=== PATIENT | female | born 1940 | race Caucasian/White ===

== ENCOUNTER 2017-06-30 13:14 | Inpatient (IN) | payer MEDICARE, MEDICAID ==
[~2017-06-30] VITALS: Ht 160 cm; Wt 89.4 kg
[~2017-06-30 13:14] MED LIST: AMLO10TA80 PO; COREG PO; HYDR-519 PO; TRIAMTERENE PO
[2017-06-30] MEDS ORDERED: SODIUM CHLORIDE 0.9% 1,000 ML IV ONE (13:31)
[2017-06-30 14:07] LABS: CHLORIDE 113 mEq/L (98-107)
[2017-06-30 14:10] LABS: INR 1.1; PROTHROMBIN TIME 11.1 sec (9.4-11.6)
[2017-06-30 14:11] LABS: BASOPHILS % 0.5 % (0.0-2.0); EOSINOPHILS % 0.3 % (0.0-5.0); HEMATOCRIT. 27.8 % (36.0-48.0); HEMOGLOBIN. 8.7 g/dL (12.0-16.0); LYMPHOCYTES % 26.4 % (20.0-50.0); MEAN CORPUSCULAR HEMOGLOBIN 20.6 pg (28.0-32.0); MEAN PLATELET VOLUME 7.1 fl (7.4-10.4); NEUTROPHILS % 60.8 % (40.0-76.0); PLATELET 518 x1000/uL (130-400); RED BLOOD CELL COUNT 4.21 mill/uL (4.2-5.4); RED CELL DISTRIBUTION WIDTH 18.3 % (11.6-14.6)
[2017-06-30] MEDS ORDERED: ONDANSETRON HCL 4MG/2ML VIAL IV STA (14:21)
[2017-06-30] MEDS ORDERED: POTASSIUM CHLORIDE 20MEQ TABLET SR PO ONE (14:30)
[2017-06-30] MEDS ORDERED: PANTOPRAZOLE SODIUM 40 MG/VIAL IV ONE (14:30)
[2017-06-30] MEDS ORDERED: ASPIRIN 81MG TABLET PO ONE (14:30)
[2017-06-30 15:02] LABS: PLATELET ESTIMATE SLIGHTLY INCREASED
[2017-06-30 15:41] LABS: CLARITY URINE CLEAR (CLEAR); COLOR URINE YELLOW (YELLOW); KETONES URINE NEGATIVE (NEGATIVE); LEUKOCYTE ESTERASE URINE 3+ (NEGATIVE); NITRITE URINE NEGATIVE (NEGATIVE); OCCULT BLOOD URINE NEGATIVE (NEGATIVE); PH URINE 7.5 (4.5-8.0); PROTEIN URINE 1+ (NEGATIVE); SPECIFIC GRAVITY URINE 1.012 (1.005-1.030); UROBILINOGEN URINE 0.2 E.U./dL (0.2-1.0)
[2017-06-30] MEDS ORDERED: CEFTRIAXONE 1 G PREMIX 50 ML IV ONE (16:00)
[2017-06-30 22:30] VITALS: BP 142/78
[2017-06-30] MEDS ORDERED: DIPHENHYDRAMINE 50MG/ML VIAL IV PRN (23:45)
[2017-06-30] MEDS ORDERED: IPRATROPIUM/ALBUTEROL 0.5-3(2.5)MG/3ML NEB INH PRN (23:45)
[2017-06-30] MEDS ORDERED: LORAZEPAM 0.5MG TABLET PO PRN (23:45)
[2017-06-30] MEDS ORDERED: NA PHOS,M-B/NA PHOS,DI-BA ENEMA 118ML PR PRN (23:45)
[2017-06-30] MEDS ORDERED: DOCUSATE SODIUM 100MG CAPSULE PO PRN (23:45)
[2017-06-30] MEDS ORDERED: MORPHINE SULFATE 4 MG/ML CPJ (NOT FOR IM USE) IV PRN (23:45)
[2017-06-30] MEDS ORDERED: ONDANSETRON HCL 4MG/2ML VIAL IV PRN (23:45)
[2017-06-30] MEDS ORDERED: MAGNESIUM/ALUMINUM HYDROXIDE/SIMETHICONE 30ML UDC PO PRN (23:45)
[2017-06-30] MEDS ORDERED: ACETAMINOPHEN 325MG TABLET PO PRN (23:45)
[2017-06-30] MEDS ORDERED: CLONIDINE 0.1MG TABLET PO PRN (23:45)
[2017-06-30] MEDS ORDERED: GUAIFENESIN 200MG/10ML SUGAR FREE UDC PO PRN (23:45)
[2017-07-01] VITALS (10 sets, daily range): BP systolic 123–161; BP diastolic 46–65
[2017-07-01] MEDS ORDERED: LEVOFLOXACIN 500MG PREMIX 100 ML IV NR (02:00)
[2017-07-01] MEDS ORDERED: KCL 10MEQ/50ML PREMIX 50 ML IV NR (02:00)
[2017-07-01] MEDS: HYDROCODONE/ACETAMINOPHEN 5/325MG TABLET PO PRN ×2 (03:07→17:27)
[2017-07-01 07:14] LABS: BASOPHILS % 0.8 % (0.0-2.0); HEMATOCRIT. 23.5 % (36.0-48.0); HEMOGLOBIN. 7.5 g/dL (12.0-16.0); LYMPHOCYTES % 30.9 % (20.0-50.0); MEAN CORPUSCULAR HEMOGLOBIN 21.2 pg (28.0-32.0); MEAN CORPUSCULAR VOLUME 66.8 fL (81.0-99.0); MEAN PLATELET VOLUME 7.1 fl (7.4-10.4); MONOCYTES % 10.5 % (2.0-8.0); NEUTROPHILS % 56.8 % (40.0-76.0); PLATELET 432 x1000/uL (130-400); RED BLOOD CELL COUNT 3.51 mill/uL (4.2-5.4); RED CELL DISTRIBUTION WIDTH 18.3 % (11.6-14.6)
[2017-07-01 08:27] LABS: CHLORIDE 116 mEq/L (98-107)
[2017-07-01 08:35] LABS: LDL CHOLESTEROL 50 mg/dL (5-100)
[2017-07-01 08:36] LABS: HDL CHOLESTEROL 46 mg/dL (40-59); T4 FREE 1.13 ng/dL (0.76-1.46)
[2017-07-01] MEDS: ASPIRIN 81MG EC TABLET PO SCH (08:51)
[2017-07-01] MEDS: ENOXAPARIN 40MG/0.4ML SYR SUBCUT SCH (08:52)
[2017-07-01 12:47] LABS: T4 FREE 1.1 ng/dL (0.76-1.46)
[2017-07-01 15:12] LABS: CREATINE KINASE MB FRACTION 2.4 ng/mL (0.5-3.6)
[2017-07-01 23:04] LABS: CREATINE KINASE MB FRACTION 2.1 ng/mL (0.5-3.6)
[2017-07-02] MEDS: HYDROCODONE/ACETAMINOPHEN 5/325MG TABLET PO PRN ×2 (00:22→11:07)
[2017-07-02 00:26] VITALS: BP 140/71
[2017-07-02] MEDS ORDERED: LEVOFLOXACIN 500MG PREMIX 100 ML IV SCH (02:00)
[2017-07-02] MEDS ORDERED: LEVOFLOXACIN 250MG PREMIX 50 ML IV SCH (02:00)
[2017-07-02 04:00] VITALS: BP 145/74
[2017-07-02 08:00] VITALS: BP 161/69
[2017-07-02 08:20] LABS: CREATINE KINASE MB FRACTION 2.2 ng/mL (0.5-3.6)
[2017-07-02] MEDS: ENOXAPARIN 40MG/0.4ML SYR SUBCUT SCH (09:00)
[2017-07-02] MEDS: ASPIRIN 81MG EC TABLET PO SCH (09:15)
[2017-07-02 10:22] VITALS: BP 125/56
[2017-07-02 12:00] VITALS: BP 125/56
== END 2017-07-02 13:09 | disposition home or self-care (01) | DRG 206 ==
LOC: EDBEDREQ 16:11 → EDBEDREQTM 16:11 → ER 16:38 → 8WST 16:40 → ENRESERV 21:03
PROVIDERS: ADMIT Internal Medicine; ATTEND Internal Medicine
PROC: 30233N1 Transfusion of Nonautologous Red Blood Cells into Peripheral Vein, Percutaneous Approach (ICD-10-PCS; principal; 2017-06-30)
DX: M94.0 Chondrocostal junction syndrome [Tietze] (principal); E86.0 Dehydration; D64.9 Anemia, unspecified; R10.9 Unspecified abdominal pain; A08.4 Viral intestinal infection, unspecified; E61.1 Iron deficiency; E87.6 Hypokalemia; I10 Essential (primary) hypertension; M19.90 Unspecified osteoarthritis, unspecified site; R07.9 Chest pain, unspecified; Z90.710 Acquired absence of both cervix and uterus; Z79.899 Other long term (current) drug therapy
CPT/HCPCS: 36415; 71045; 76700; 80048; 80053; 80061; 81003; 82550; 82553; 83036; 83690; 83880; 84439; 84443; 84484; 85025; 85379; 85610; 85730; 86850; 86900; 86920; 93005; 93306; 93970; 96361; 96365; 96375; 99285; C9113; J0696; J1650; J1956; J2405; J3480; J7030; J7050; P9016

== ENCOUNTER 2018-06-29 10:29 | Inpatient (IN) | payer MEDICARE, MEDICAID ==
[~2018-06-29] VITALS: Ht 160 cm; Wt 84.4 kg
[2018-06-29] VITALS (9 sets, daily range): BP systolic 130–155; BP diastolic 50–81
[~2018-06-29 10:29] MED LIST changes: -COREG PO; -TRIAMTERENE PO
[2018-06-29 11:58] LABS: BASOPHILS % 1.1 % (0.0-2.0); EOSINOPHILS % 1.4 % (0.0-5.0); LYMPHOCYTES % 28.3 % (20.0-50.0); MEAN CORPUSCULAR HEMOGLOBIN 19.9 pg (28.0-32.0); MEAN CORPUSCULAR VOLUME 66.8 fL (81.0-99.0); MONOCYTES % 7.9 % (2.0-8.0); NEUTROPHILS % 61.3 % (40.0-76.0); PLATELET 392 x1000/uL (130-400); RED BLOOD CELL COUNT 3.06 mill/uL (4.2-5.4); RED CELL DISTRIBUTION WIDTH 17.6 % (11.6-14.6)
[2018-06-29 11:59] LABS: HEMOGLOBIN. 6.1 g/dL (12.0-16.0)
[2018-06-29 12:00] LABS: HEMATOCRIT. 20.4 % (36.0-48.0)
[2018-06-29 12:02] LABS: CHLORIDE 116 mEq/L (98-107)
[2018-06-29 12:10] LABS: PLATELET ESTIMATE NORMAL
[2018-06-29 15:48] LABS: MEAN CORPUSCULAR HEMOGLOBIN 20.2 pg (28.0-32.0); MEAN CORPUSCULAR VOLUME 65.2 fL (81.0-99.0); PLATELET 339 x1000/uL (130-400); RED CELL DISTRIBUTION WIDTH 17.6 % (11.6-14.6)
[2018-06-29 15:51] LABS: HEMATOCRIT 18.9 % (36.0-48.0); HEMOGLOBIN 5.8 g/dL (12.0-16.0)
[2018-06-29] MEDS ORDERED: GUAIFENESIN 200MG/10ML SUGAR FREE UDC PO PRN (16:00)
[2018-06-29] MEDS ORDERED: DIPHENHYDRAMINE 50MG/ML VIAL IV PRN (16:00)
[2018-06-29] MEDS ORDERED: ONDANSETRON HCL 4MG/2ML INJ IV PRN (16:00)
[2018-06-29] MEDS ORDERED: CLONIDINE 0.1MG TABLET PO PRN (16:00)
[2018-06-29] MEDS ORDERED: IPRATROPIUM/ALBUTEROL 0.5-3(2.5)MG/3ML NEB INH PRN (16:00)
[2018-06-29] MEDS ORDERED: ACETAMINOPHEN 325MG TABLET PO PRN (16:00)
[2018-06-29] MEDS ORDERED: HYDRALAZINE 20MG/ML VIAL IV PRN (16:00)
[2018-06-29 16:34] LABS: TOTAL IRON BINDING CAPACITY 410 ug/dL (250-450)
[2018-06-29 17:31] LABS: TOTAL IRON BINDING CAPACITY 366 ug/dL (250-450)
[2018-06-29] MEDS ORDERED: OXYC-104 MT (18:23)
[2018-06-29] MEDS: PANTOPRAZOLE SODIUM 40 MG/VIAL IV SCH (19:02)
[2018-06-29 21:48] LABS: HEMOGLOBIN 6.5 g/dL (12.0-16.0)
[2018-06-30] VITALS (12 sets, daily range): BP systolic 124–162; BP diastolic 53–74
[2018-06-30] MEDS: OXYCODONE HCL/ACETAMINOPHEN 5/325MG TABLET PO PRN ×3 (00:53→17:27)
[2018-06-30] MEDS: SODIUM CHLORIDE 0.9% 1,000 ML IV SCH ×2 (00:57→17:28)
[2018-06-30 01:45] LABS: HEMATOCRIT 24.5 % (36.0-48.0); HEMOGLOBIN 7.9 g/dL (12.0-16.0)
[2018-06-30] MEDS: PANTOPRAZOLE SODIUM 40 MG/VIAL IV SCH ×2 (05:12→17:27)
[2018-06-30 05:49] LABS: BASOPHILS % 0.8 % (0.0-2.0); EOSINOPHILS % 2.1 % (0.0-5.0); HEMATOCRIT. 23.6 % (36.0-48.0); HEMOGLOBIN. 7.4 g/dL (12.0-16.0); LYMPHOCYTES % 25.7 % (20.0-50.0); MEAN CORPUSCULAR HEMOGLOBIN 21.9 pg (28.0-32.0); MEAN CORPUSCULAR VOLUME 69.8 fL (81.0-99.0); MEAN PLATELET VOLUME 7.9 fl (7.4-10.4); MONOCYTES % 9.7 % (2.0-8.0); NEUTROPHILS % 61.7 % (40.0-76.0); PLATELET 287 x1000/uL (130-400); RED BLOOD CELL COUNT 3.38 mill/uL (4.2-5.4); RED CELL DISTRIBUTION WIDTH 20.6 % (11.6-14.6)
[2018-06-30 06:51] LABS: PHOSPHORUS 3.7 mg/dL (2.5-4.9)
[2018-06-30] MEDS: AMLODIPINE 10MG TABLET PO SCH (08:43)
[2018-06-30] MEDS: IRON SUCROSE COMPLEX 100 MG/5 ML ML IV SCH (11:13)
[2018-06-30 12:28] LABS: T4 FREE 1.19 ng/dL (0.76-1.46)
[2018-06-30 20:30] LABS: HEMATOCRIT 27.9 % (36.0-48.0); HEMOGLOBIN 8.9 g/dL (12.0-16.0)
[2018-06-30 20:45] LABS: CREATINE KINASE 74 IU/L (26-192)
[2018-06-30 20:46] LABS: CREATINE KINASE MB FRACTION < 1.0 ng/mL (0.5-3.6)
[2018-07-01] VITALS: BP 149/65
[2018-07-01] MEDS: OXYCODONE HCL/ACETAMINOPHEN 5/325MG TABLET PO PRN ×2 (00:02→09:24)
[2018-07-01 04:00] VITALS: BP 155/62
[2018-07-01] MEDS: PANTOPRAZOLE SODIUM 40 MG/VIAL IV SCH (06:26)
[2018-07-01 06:49] LABS: BASOPHILS % 1.2 % (0.0-2.0); EOSINOPHILS % 2.5 % (0.0-5.0); HEMATOCRIT. 26.7 % (36.0-48.0); HEMOGLOBIN. 8.6 g/dL (12.0-16.0); LYMPHOCYTES % 28.8 % (20.0-50.0); MEAN CORPUSCULAR HEMOGLOBIN 22.9 pg (28.0-32.0); MEAN CORPUSCULAR VOLUME 70.9 fL (81.0-99.0); MEAN PLATELET VOLUME 7.9 fl (7.4-10.4); MONOCYTES % 8.9 % (2.0-8.0); NEUTROPHILS % 58.6 % (40.0-76.0); PLATELET 285 x1000/uL (130-400); RED BLOOD CELL COUNT 3.77 mill/uL (4.2-5.4); RED CELL DISTRIBUTION WIDTH 21.9 % (11.6-14.6)
[2018-07-01 07:31] LABS: CREATINE KINASE 66 IU/L (26-192)
[2018-07-01 07:32] LABS: CREATINE KINASE MB FRACTION < 1.0 ng/mL (0.5-3.6)
[2018-07-01 08:29] VITALS: BP 153/64
[2018-07-01 09:20] VITALS: BP 134/53
[2018-07-01] MEDS: AMLODIPINE 10MG TABLET PO SCH (09:25)
[2018-07-01] MEDS: IRON SUCROSE COMPLEX 100 MG/5 ML ML IV SCH (10:42)
[2018-07-01 12:00] VITALS: BP 159/72
[2018-07-01 14:04] VITALS: BP 159/72
== END 2018-07-01 15:54 | disposition home or self-care (01) | DRG 375 ==
LOC: ER 10:29 → 8WST 12:09 → ENRESERV 14:37
PROVIDERS: ADMIT Internal Medicine; ATTEND Internal Medicine
PROC: 30233N1 Transfusion of Nonautologous Red Blood Cells into Peripheral Vein, Percutaneous Approach (ICD-10-PCS; principal; 2018-06-29)
DX: C15.9 Malignant neoplasm of esophagus, unspecified (principal); C16.9 Malignant neoplasm of stomach, unspecified; D63.0 Anemia in neoplastic disease; E78.5 Hyperlipidemia, unspecified; M19.90 Unspecified osteoarthritis, unspecified site; D63.8 Anemia in other chronic diseases classified elsewhere; I11.9 Hypertensive heart disease without heart failure; D50.0 Iron deficiency anemia secondary to blood loss (chronic); I25.2 Old myocardial infarction; Z82.49 Family history of ischemic heart disease and other diseases of the circulatory system; Z83.3 Family history of diabetes mellitus; Z90.710 Acquired absence of both cervix and uterus; Z79.1 Long term (current) use of non-steroidal anti-inflammatories (NSAID); Z79.899 Other long term (current) drug therapy
CPT/HCPCS: 36415; 71045; 78582; 80048; 80061; 82550; 82553; 82728; 83036; 83540; 83550; 83735; 83880; 84100; 84439; 84443; 84484; 85014; 85018; 85027; 85379; 86850; 86870; 86900; 86920; 93005; 93306; 93970; 99285; A9558; C9113; J7050; P9016

== ENCOUNTER 2018-10-09 06:33 | Emergency (ER) | payer MEDICARE, MEDICAID ==
[~2018-10-09] VITALS: Ht 160 cm; Wt 77.0 kg
[~2018-10-09 06:33] MED LIST changes: -HYDR-519 PO; +OXYC-104 MT
[2018-10-09] MEDS ORDERED: MORPHINE SULFATE 4 MG/ML CPJ (NOT FOR IM USE) IV STA (06:57)
[2018-10-09] MEDS ORDERED: ONDANSETRON HCL 4MG/2ML INJ IV STA (06:57)
[2018-10-09 07:53] LABS: BASOPHILS % 0.8 % (0.0-2.0); EOSINOPHILS % 0.5 % (0.0-5.0); HEMATOCRIT. 25.6 % (36.0-48.0); HEMOGLOBIN. 8.4 g/dL (12.0-16.0); LYMPHOCYTES % 21.8 % (20.0-50.0); MEAN CORPUSCULAR HEMOGLOBIN 24.3 pg (28.0-32.0); MEAN CORPUSCULAR VOLUME 73.9 fL (81.0-99.0); MEAN PLATELET VOLUME 6.5 fl (7.4-10.4); MONOCYTES % 6.8 % (2.0-8.0); NEUTROPHILS % 70.1 % (40.0-76.0); PLATELET 484 x1000/uL (130-400); RED BLOOD CELL COUNT 3.47 mill/uL (4.2-5.4); RED CELL DISTRIBUTION WIDTH 18.3 % (11.6-14.6)
[2018-10-09 07:57] LABS: INR 1.1
[2018-10-09 08:05] LABS: CHLORIDE 113 mEq/L (98-107)
[2018-10-09 08:10] LABS: CLARITY URINE CLEAR (CLEAR); COLOR URINE YELLOW (YELLOW); KETONES URINE TRACE (NEGATIVE); LEUKOCYTE ESTERASE URINE NEGATIVE (NEGATIVE); NITRITE URINE NEGATIVE (NEGATIVE); OCCULT BLOOD URINE NEGATIVE (NEGATIVE); PH URINE 6.5 (4.5-8.0); PROTEIN URINE 1+ (NEGATIVE); UROBILINOGEN URINE 0.2 E.U./dL (0.2-1.0)
[2018-10-09] MEDS ORDERED: ONDANSETRON HCL 4MG/2ML INJ IV ONE (09:30)
[2018-10-09 09:42] VITALS: BP 144/65
== END 2018-10-09 09:53 | disposition home or self-care (01) ==
LOC: ER 06:33
DX: R10.9 Unspecified abdominal pain (principal); R11.2 Nausea with vomiting, unspecified; I10 Essential (primary) hypertension; Z85.028 Personal history of other malignant neoplasm of stomach
CPT/HCPCS: 36415; 71045; 74176; 80053; 81003; 83690; 85025; 85610; 93005; 96374; 96375; 96376; 99284; J2270; J2405

== ENCOUNTER 2018-12-09 09:57 | Inpatient (IN) | payer MEDICARE, MEDICAID ==
[~2018-12-09] VITALS: Ht 160 cm; Wt 84.4 kg
[2018-12-09] MEDS ORDERED: SODIUM CHLORIDE 0.9% 1,000 ML IV ONE (10:16)
[2018-12-09] MEDS ORDERED: ONDANSETRON HCL 4MG/2ML INJ IV STA (10:16)
[2018-12-09 11:05] LABS: BASOPHILS % 0.9 % (0.0-2.0); LYMPHOCYTES % 18.5 % (20.0-50.0); MEAN CORPUSCULAR HEMOGLOBIN 20.3 pg (28.0-32.0); MEAN CORPUSCULAR VOLUME 66.6 fL (81.0-99.0); MEAN PLATELET VOLUME 7.6 fl (7.4-10.4); MONOCYTES % 6.7 % (2.0-8.0); NEUTROPHILS % 72.9 % (40.0-76.0); PLATELET 512 x1000/uL (130-400); RED BLOOD CELL COUNT 2.01 mill/uL (4.2-5.4); RED CELL DISTRIBUTION WIDTH 17.3 % (11.6-14.6)
[2018-12-09 11:09] LABS: INR 1.1
[2018-12-09 11:10] LABS: CHLORIDE 114 mEq/L (98-107)
[2018-12-09 11:15] LABS: HEMOGLOBIN. 4.1 g/dL (12.0-16.0)
[2018-12-09 11:16] LABS: HEMATOCRIT. 13.4 % (36.0-48.0)
[2018-12-09 11:54] LABS: PLATELET ESTIMATE INCREASED
[2018-12-09 14:57] LABS: CLARITY URINE CLEAR (CLEAR); COLOR URINE YELLOW (YELLOW); KETONES URINE NEGATIVE (NEGATIVE); LEUKOCYTE ESTERASE URINE NEGATIVE (NEGATIVE); NITRITE URINE NEGATIVE (NEGATIVE); OCCULT BLOOD URINE NEGATIVE (NEGATIVE); PROTEIN URINE NEGATIVE (NEGATIVE); SPECIFIC GRAVITY URINE 1.007 (1.005-1.030); UROBILINOGEN URINE 0.2 E.U./dL (0.2-1.0)
[2018-12-09 16:00] VITALS: BP 177/70
[2018-12-09 17:00] VITALS: BP 177/70
[2018-12-09] MEDS ORDERED: CLONIDINE 0.1MG TABLET PO PRN (18:30)
[2018-12-09] MEDS ORDERED: ACETAMINOPHEN 325MG TABLET PO PRN (18:30)
[2018-12-09] MEDS ORDERED: MAGNESIUM/ALUMINUM HYDROXIDE/SIMETHICONE 30ML UDC PO PRN (18:30)
[2018-12-09] MEDS ORDERED: DIPHENHYDRAMINE 50MG/ML VIAL IV PRN (18:30)
[2018-12-09] MEDS ORDERED: LORAZEPAM 0.5MG TABLET PO PRN (18:30)
[2018-12-09] MEDS ORDERED: IPRATROPIUM/ALBUTEROL 0.5-3(2.5)MG/3ML NEB HHN PRN (18:30)
[2018-12-09] MEDS: ONDANSETRON HCL 4MG/2ML INJ IV PRN (19:59)
[2018-12-09 20:00] VITALS: BP 147/52
[2018-12-09] MEDS: SODIUM CHLORIDE 0.9% 1,000 ML IV SCH (20:17)
[2018-12-09] MEDS: FAMOTIDINE 20MG TABLET PO SCH (20:41)
[2018-12-09] MEDS: HYDROCODONE/ACETAMINOPHEN 5/325MG TABLET PO PRN (20:42)
[2018-12-10] VITALS (16 sets, daily range): BP systolic 128–162; BP diastolic 49–62
[2018-12-10 00:24] LABS: BASOPHILS % 0.6 % (0.0-2.0); EOSINOPHILS % 1.3 % (0.0-5.0); LYMPHOCYTES % 21.4 % (20.0-50.0); MEAN CORPUSCULAR HEMOGLOBIN 22.3 pg (28.0-32.0); MEAN CORPUSCULAR VOLUME 69.7 fL (81.0-99.0); MEAN PLATELET VOLUME 7.4 fl (7.4-10.4); NEUTROPHILS % 68.7 % (40.0-76.0); PLATELET 451 x1000/uL (130-400); RED BLOOD CELL COUNT 2.27 mill/uL (4.2-5.4); RED CELL DISTRIBUTION WIDTH 19.8 % (11.6-14.6)
[2018-12-10 00:31] LABS: HEMOGLOBIN. 5.1 g/dL (12.0-16.0)
[2018-12-10 00:32] LABS: HEMATOCRIT. 15.8 % (36.0-48.0)
[2018-12-10 01:46] LABS: TOTAL IRON BINDING CAPACITY 299 ug/dL (250-450)
[2018-12-10] MEDS: ONDANSETRON HCL 4MG/2ML INJ IV PRN ×2 (02:49→20:03)
[2018-12-10] MEDS: HYDROCODONE/ACETAMINOPHEN 5/325MG TABLET PO PRN ×3 (04:51→20:03)
[2018-12-10] MEDS: IRON SUCROSE COMPLEX 100 MG/5 ML ML IV SCH (05:15)
[2018-12-10 07:22] LABS: MEAN CORPUSCULAR HEMOGLOBIN 22.7 pg (28.0-32.0); MEAN CORPUSCULAR VOLUME 71.3 fL (81.0-99.0); PLATELET 432 x1000/uL (130-400); RED BLOOD CELL COUNT 2.71 mill/uL (4.2-5.4); RED CELL DISTRIBUTION WIDTH 19.4 % (11.6-14.6)
[2018-12-10 07:45] LABS: HEMATOCRIT 19.4 % (36.0-48.0); HEMOGLOBIN 6.2 g/dL (12.0-16.0)
[2018-12-10] MEDS: SODIUM CHLORIDE 0.9% 1,000 ML IV SCH (20:08)
[2018-12-10] MEDS: FAMOTIDINE 20MG TABLET PO SCH (21:39)
[2018-12-11] VITALS (12 sets, daily range): BP systolic 132–164; BP diastolic 48–69
[2018-12-11] MEDS: ONDANSETRON HCL 4MG/2ML INJ IV PRN ×2 (03:46→11:13)
[2018-12-11] MEDS: HYDROCODONE/ACETAMINOPHEN 5/325MG TABLET PO PRN ×2 (03:46→11:14)
[2018-12-11] MEDS: IRON SUCROSE COMPLEX 100 MG/5 ML ML IV SCH (05:50)
[2018-12-11] MEDS: SODIUM CHLORIDE 0.9% 1,000 ML IV SCH (10:29)
[2018-12-11 11:54] LABS: BASOPHILS % 0.6 % (0.0-2.0); EOSINOPHILS % 1.9 % (0.0-5.0); HEMATOCRIT. 28.3 % (36.0-48.0); HEMOGLOBIN. 9.2 g/dL (12.0-16.0); LYMPHOCYTES % 15.5 % (20.0-50.0); MEAN CORPUSCULAR VOLUME 76.9 fL (81.0-99.0); MEAN PLATELET VOLUME 7.8 fl (7.4-10.4); MONOCYTES % 6.9 % (2.0-8.0); NEUTROPHILS % 75.1 % (40.0-76.0); PLATELET 429 x1000/uL (130-400); RED BLOOD CELL COUNT 3.67 mill/uL (4.2-5.4); RED CELL DISTRIBUTION WIDTH 22.8 % (11.6-14.6)
== END 2018-12-11 16:57 | disposition home or self-care (01) | DRG 812 ==
LOC: ER 09:59 → 6WST 11:38 → ENRESERV 12:45
PROVIDERS: ADMIT Internal Medicine; ATTEND Internal Medicine
PROC: 30233N1 Transfusion of Nonautologous Red Blood Cells into Peripheral Vein, Percutaneous Approach (ICD-10-PCS; principal; 2018-12-09)
PROC: 30233N1 Transfusion of Nonautologous Red Blood Cells into Peripheral Vein, Percutaneous Approach (ICD-10-PCS; 2018-12-09)
DX: D64.9 Anemia, unspecified (principal); E44.1 Mild protein-calorie malnutrition; I10 Essential (primary) hypertension; M19.90 Unspecified osteoarthritis, unspecified site; Z82.49 Family history of ischemic heart disease and other diseases of the circulatory system; Z85.01 Personal history of malignant neoplasm of esophagus; Z85.028 Personal history of other malignant neoplasm of stomach; Z90.710 Acquired absence of both cervix and uterus
CPT/HCPCS: 36415; 71045; 81003; 83540; 83550; 84484; 85027; 86850; 86870; 86900; 86920; 93005; 93970; 96374; 99285; J2405; J7030; P9016

== ENCOUNTER 2019-01-02 06:15 | Inpatient (IN) | payer MEDICARE, MEDICAID ==
[~2019-01-02] VITALS: Ht 162.6 cm; Wt 90.7 kg
[2019-01-02] MEDS ORDERED: ONDANSETRON HCL 4MG/2ML INJ IV STA (06:52)
[2019-01-02 07:36] LABS: BASOPHILS % 0.2 % (0.0-2.0); LYMPHOCYTES % 7.4 % (20.0-50.0); MEAN CORPUSCULAR HEMOGLOBIN 25.6 pg (28.0-32.0); MEAN CORPUSCULAR VOLUME 81.4 fL (81.0-99.0); MEAN PLATELET VOLUME 7.2 fl (7.4-10.4); NEUTROPHILS % 89.4 % (40.0-76.0); PLATELET 544 x1000/uL (130-400); RED BLOOD CELL COUNT 1.95 mill/uL (4.2-5.4); RED CELL DISTRIBUTION WIDTH 23.7 % (11.6-14.6)
[2019-01-02 07:43] LABS: CHLORIDE 116 mEq/L (98-107); HEMATOCRIT. 15.8 % (36.0-48.0)
[2019-01-02 07:44] LABS: INR 1.1; PROTHROMBIN TIME 11.5 sec (9.6-11.0)
[2019-01-02 08:04] LABS: PLATELET ESTIMATE INCREASED
[2019-01-02] MEDS ORDERED: PANTOPRAZOLE SODIUM 40 MG/VIAL IV ONE (09:00)
[2019-01-02 12:36] LABS: CLARITY URINE CLOUDY (CLEAR); COLOR URINE YELLOW (YELLOW); KETONES URINE NEGATIVE (NEGATIVE); LEUKOCYTE ESTERASE URINE 2+ (NEGATIVE); NITRITE URINE NEGATIVE (NEGATIVE); OCCULT BLOOD URINE 2+ (NEGATIVE); PROTEIN URINE TRACE (NEGATIVE); SPECIFIC GRAVITY URINE 1.014 (1.005-1.030); UROBILINOGEN URINE 0.2 E.U./dL (0.2-1.0)
[2019-01-02 17:00] VITALS: BP 152/56
[2019-01-02 20:00] VITALS: BP 139/65
[2019-01-02] MEDS: PANTOPRAZOLE SODIUM 40 MG/VIAL IV SCH (21:58)
[2019-01-02] MEDS ORDERED: CEFTRIAXONE 1 G PREMIX 50 ML IV SCH (23:15)
[2019-01-03] VITALS (15 sets, daily range): BP systolic 99–147; BP diastolic 40–99
[2019-01-03 01:13] LABS: HEMATOCRIT 16.7 % (36.0-48.0); HEMOGLOBIN 5.6 g/dL (12.0-16.0)
[2019-01-03] MEDS: CEFTRIAXONE 1 G PREMIX 50 ML IV SCH (01:42)
[2019-01-03] MEDS ORDERED: OXYCODONE HCL MT PRN (02:45)
[2019-01-03] MEDS ORDERED: [UNRECOGNIZED DRUG - OTHER] MT PRN (02:45)
[2019-01-03] MEDS ORDERED: ACETAMINOPHEN MT PRN (02:45)
[2019-01-03] MEDS ORDERED: OXYC-100 MT (02:47)
[2019-01-03] MEDS: OXYCODONE HCL/ACETAMINOPHEN 5/325MG TABLET PO PRN ×2 (03:43→15:57)
[2019-01-03 06:56] LABS: INR 1.1; PARTIAL THROMBOPLASTIN TIME 22.6 sec (23.4-31.0); PROTHROMBIN TIME 11.2 sec (9.6-11.0)
[2019-01-03 07:54] LABS: BASOPHILS % 0.5 % (0.0-2.0); EOSINOPHILS % 0.9 % (0.0-5.0); LYMPHOCYTES % 18.1 % (20.0-50.0); MEAN CORPUSCULAR HEMOGLOBIN 27.4 pg (28.0-32.0); MEAN CORPUSCULAR VOLUME 82.5 fL (81.0-99.0); MEAN PLATELET VOLUME 7.3 fl (7.4-10.4); MONOCYTES % 5.8 % (2.0-8.0); NEUTROPHILS % 74.7 % (40.0-76.0); PLATELET 434 x1000/uL (130-400); RED BLOOD CELL COUNT 2.35 mill/uL (4.2-5.4); RED CELL DISTRIBUTION WIDTH 20.4 % (11.6-14.6)
[2019-01-03 08:07] LABS: HEMATOCRIT. 19.3 % (36.0-48.0); HEMOGLOBIN. 6.4 g/dL (12.0-16.0)
[2019-01-03] MEDS ORDERED: AMLODIPINE 10MG TABLET PO SCH (09:00)
[2019-01-03] MEDS: AMLODIPINE 10MG TABLET PO SCH (09:00)
[2019-01-03] MEDS: PANTOPRAZOLE SODIUM 40 MG/VIAL IV SCH ×2 (09:36→21:37)
[2019-01-03 19:01] LABS: HEMATOCRIT 23.5 % (36.0-48.0); HEMOGLOBIN 7.9 g/dL (12.0-16.0); MEAN CORPUSCULAR HEMOGLOBIN 27.9 pg (28.0-32.0); PLATELET 457 x1000/uL (130-400); RED BLOOD CELL COUNT 2.83 mill/uL (4.2-5.4); RED CELL DISTRIBUTION WIDTH 19.4 % (11.6-14.6)
[2019-01-03 23:47] LABS: HEMATOCRIT 22.6 % (36.0-48.0); HEMOGLOBIN 7.5 g/dL (12.0-16.0)
[2019-01-04] VITALS (10 sets, daily range): BP systolic 103–169; BP diastolic 46–66
[2019-01-04] MEDS: CEFTRIAXONE 1 G PREMIX 50 ML IV SCH (00:37)
[2019-01-04] MEDS: OXYCODONE HCL/ACETAMINOPHEN 5/325MG TABLET PO PRN ×2 (00:38→09:07)
[2019-01-04 06:57] LABS: BASOPHILS % 0.5 % (0.0-2.0); EOSINOPHILS % 2.7 % (0.0-5.0); HEMATOCRIT. 22.5 % (36.0-48.0); HEMOGLOBIN. 7.6 g/dL (12.0-16.0); LYMPHOCYTES % 18.7 % (20.0-50.0); MEAN CORPUSCULAR HEMOGLOBIN 27.8 pg (28.0-32.0); MEAN CORPUSCULAR VOLUME 82.7 fL (81.0-99.0); MEAN PLATELET VOLUME 7.1 fl (7.4-10.4); MONOCYTES % 6.4 % (2.0-8.0); NEUTROPHILS % 71.7 % (40.0-76.0); PLATELET 438 x1000/uL (130-400); RED BLOOD CELL COUNT 2.72 mill/uL (4.2-5.4); RED CELL DISTRIBUTION WIDTH 19.5 % (11.6-14.6)
[2019-01-04] MEDS: AMLODIPINE 10MG TABLET PO SCH (09:00)
[2019-01-04] MEDS ORDERED: DIPHENHYDRAMINE 50MG/ML VIAL IV NR (13:15)
[2019-01-04] MEDS ORDERED: ACETAMINOPHEN 650MG/20.3ML UDC PO NR (13:15)
[2019-01-04] MEDS ORDERED: LIDOCAINE 5% PATCH TOP SCH (16:00)
[2019-01-04] MEDS ORDERED: FENTANYL CITRATE/PF 50MCG/ML 2ML VIAL ONE (17:16)
[2019-01-04] MEDS ORDERED: MIDAZOLAM HCL 5 MG/5 ML VIAL ONE (17:16)
[2019-01-04] MEDS ORDERED: SIMETHICONE 40 MG/0.6 ML 30ML ONE (17:16)
[2019-01-04] MEDS ORDERED: MIDAZOLAM HCL 5 MG/5 ML VIAL IV PRN (17:20)
[2019-01-04 20:10] LABS: HEMATOCRIT 26.7 % (36.0-48.0); HEMOGLOBIN 8.8 g/dL (12.0-16.0)
[2019-01-04] MEDS ORDERED: SULFAMETHOXAZOLE/TRIMETHOPRIM 400/80MG TAB PO SCH (21:00)
[2019-01-04] MEDS: SULFAMETHOXAZOLE/TRIMETHOPRIM 800/160MG TABLET PO SCH (21:35)
[2019-01-04] MEDS: LIDOCAINE 5% PATCH TOP SCH (21:36)
[2019-01-05] VITALS: BP 130/56
[2019-01-05 04:00] VITALS: BP 126/48
[2019-01-05 07:09] LABS: BASOPHILS % 0.8 % (0.0-2.0); EOSINOPHILS % 3.2 % (0.0-5.0); HEMATOCRIT. 26.1 % (36.0-48.0); HEMOGLOBIN. 8.7 g/dL (12.0-16.0); LYMPHOCYTES % 19.1 % (20.0-50.0); MEAN CORPUSCULAR HEMOGLOBIN 27.5 pg (28.0-32.0); MEAN CORPUSCULAR VOLUME 82.3 fL (81.0-99.0); MEAN PLATELET VOLUME 7.1 fl (7.4-10.4); MONOCYTES % 7.1 % (2.0-8.0); NEUTROPHILS % 69.8 % (40.0-76.0); PLATELET 396 x1000/uL (130-400); RED BLOOD CELL COUNT 3.17 mill/uL (4.2-5.4); RED CELL DISTRIBUTION WIDTH 19.3 % (11.6-14.6)
[2019-01-05 08:00] VITALS: BP 168/67
[2019-01-05] MEDS: AMLODIPINE 10MG TABLET PO SCH (09:46)
[2019-01-05] MEDS: SULFAMETHOXAZOLE/TRIMETHOPRIM 800/160MG TABLET PO SCH ×2 (09:46→21:51)
[2019-01-05] MEDS: LIDOCAINE 5% PATCH TOP SCH (09:48)
[2019-01-05] MEDS: OXYCODONE HCL/ACETAMINOPHEN 5/325MG TABLET PO PRN (09:52)
[2019-01-05 12:00] VITALS: BP 121/53
[2019-01-05] MEDS ORDERED: SULF1TAB44 PO (12:53)
[2019-01-05 16:00] VITALS: BP 118/62
[2019-01-05 20:00] VITALS: BP 131/59
[2019-01-06] VITALS: BP 132/60
[2019-01-06 04:00] VITALS: BP 102/45
[2019-01-06 08:18] VITALS: BP 123/48
[2019-01-06] MEDS: LIDOCAINE 5% PATCH TOP SCH (08:28)
[2019-01-06] MEDS: AMLODIPINE 10MG TABLET PO SCH (08:29)
[2019-01-06] MEDS: SULFAMETHOXAZOLE/TRIMETHOPRIM 800/160MG TABLET PO SCH (08:29)
[2019-01-06] MEDS: OXYCODONE HCL/ACETAMINOPHEN 5/325MG TABLET PO PRN (08:29)
[2019-01-06 10:49] VITALS: BP 133/85
== END 2019-01-06 12:17 | disposition home health service (06) | DRG 871 ==
LOC: ER 06:15 → 6WST 09:02 → EDBEDREQ 09:12 → ENRESERV 14:12
PROVIDERS: ADMIT Family Medicine Adult Medicine; ATTEND Family Medicine Adult Medicine
PROC: 30233N1 Transfusion of Nonautologous Red Blood Cells into Peripheral Vein, Percutaneous Approach (ICD-10-PCS; 2019-01-02)
PROC: 0DB38ZX Excision of Lower Esophagus, Via Natural or Artificial Opening Endoscopic, Diagnostic (ICD-10-PCS; principal; 2019-01-04)
DX: A41.9 Sepsis, unspecified organism (principal); K29.71 Gastritis, unspecified, with bleeding; I21.9 Acute myocardial infarction, unspecified; C16.0 Malignant neoplasm of cardia; N39.0 Urinary tract infection, site not specified; N17.9 Acute kidney failure, unspecified; C15.9 Malignant neoplasm of esophagus, unspecified; D50.0 Iron deficiency anemia secondary to blood loss (chronic); I10 Essential (primary) hypertension; M19.90 Unspecified osteoarthritis, unspecified site; D63.0 Anemia in neoplastic disease; F03.90 Unspecified dementia, unspecified severity, without behavioral disturbance, psychotic disturbance, mood disturbance, and anxiety; I25.10 Atherosclerotic heart disease of native coronary artery without angina pectoris; N28.1 Cyst of kidney, acquired; K22.2 Esophageal obstruction; R07.89 Other chest pain; Z82.49 Family history of ischemic heart disease and other diseases of the circulatory system; I25.2 Old myocardial infarction; Z90.710 Acquired absence of both cervix and uterus
CPT/HCPCS: 36415; 71045; 74176; 80048; 80061; 81003; 83036; 83735; 83880; 84484; 85014; 85018; 85027; 86850; 86870; 86900; 86920; 87077; 87186; 88305; 88312; 93005; 93306; 99291; C9113; J0696; J1200; J2250; J2405; J3010; P9016; P9021

== ENCOUNTER 2019-01-17 02:55 | Inpatient (IN) | payer MEDICARE, MEDICAID ==
[~2019-01-17] VITALS: Ht 160 cm; Wt 64.1 kg
[2019-01-17] VITALS (17 sets, daily range): BP systolic 114–139; BP diastolic 50–65
[~2019-01-17 02:55] MED LIST changes: +SULF1TAB44 PO
[2019-01-17] MEDS ORDERED: ONDANSETRON HCL 4MG/2ML INJ IV STA (03:19)
[2019-01-17] MEDS ORDERED: SODIUM CHLORIDE 0.9% 1,000 ML IV ONE (03:19)
[2019-01-17] MEDS ORDERED: MORPHINE SULFATE 4 MG/ML CPJ (NOT FOR IM USE) IV STA (03:19)
[2019-01-17 03:49] LABS: BASOPHILS % 0.5 % (0.0-2.0); EOSINOPHILS % 1.8 % (0.0-5.0); LYMPHOCYTES % 24.8 % (20.0-50.0); MEAN CORPUSCULAR HEMOGLOBIN 27.4 pg (28.0-32.0); MEAN CORPUSCULAR VOLUME 84.1 fL (81.0-99.0); MEAN PLATELET VOLUME 8.4 fl (7.4-10.4); MONOCYTES % 6.6 % (2.0-8.0); NEUTROPHILS % 66.3 % (40.0-76.0); PLATELET 456 x1000/uL (130-400); RED BLOOD CELL COUNT 2.11 mill/uL (4.2-5.4); RED CELL DISTRIBUTION WIDTH 18.3 % (11.6-14.6)
[2019-01-17 03:52] LABS: CHLORIDE 114 mEq/L (98-107); INR 1.1; PROTHROMBIN TIME 11.2 sec (9.6-11.0)
[2019-01-17 03:57] LABS: HEMATOCRIT. 17.7 % (36.0-48.0); HEMOGLOBIN. 5.8 g/dL (12.0-16.0)
[2019-01-17 04:07] LABS: CLARITY URINE CLOUDY (CLEAR); COLOR URINE YELLOW (YELLOW); KETONES URINE NEGATIVE (NEGATIVE); LEUKOCYTE ESTERASE URINE 1+ (NEGATIVE); NITRITE URINE NEGATIVE (NEGATIVE); OCCULT BLOOD URINE NEGATIVE (NEGATIVE); PROTEIN URINE TRACE (NEGATIVE); SPECIFIC GRAVITY URINE 1.016 (1.005-1.030); UROBILINOGEN URINE 0.2 E.U./dL (0.2-1.0)
[2019-01-17] MEDS ORDERED: PANTOPRAZOLE SODIUM 40 MG/VIAL IV STA (05:41)
[2019-01-17] MEDS ORDERED: ASPI-1393 MT (09:23)
[2019-01-17] MEDS: HYDROCODONE/ACETAMINOPHEN 5/325MG TABLET PO PRN ×3 (12:35→21:34)
[2019-01-17] MEDS ORDERED: SODIUM CHLORIDE 0.9% 1,000 ML IV SCH (13:06)
[2019-01-17] MEDS ORDERED: ACETAMINOPHEN 325MG TABLET PO PRN (13:15)
[2019-01-17] MEDS ORDERED: DOCUSATE SODIUM 100MG CAPSULE PO PRN (13:15)
[2019-01-17] MEDS ORDERED: MAGNESIUM/ALUMINUM HYDROXIDE/SIMETHICONE 30ML UDC PO PRN (13:15)
[2019-01-17] MEDS ORDERED: ONDANSETRON HCL 4MG/2ML INJ IV PRN ×2 (13:15→13:30)
[2019-01-17] MEDS ORDERED: CLONIDINE 0.1MG TABLET PO PRN ×2 (13:15→13:30)
[2019-01-17] MEDS ORDERED: PANTOPRAZOLE SODIUM 40 MG/VIAL IV SCH (13:15)
[2019-01-17] MEDS: PANTOPRAZOLE SODIUM 40 MG/VIAL IV SCH (14:27)
[2019-01-17] MEDS: SODIUM CHLORIDE 0.9% 1,000 ML IV SCH (14:27)
[2019-01-17] MEDS: AMLODIPINE 5MG TABLET PO SCH (21:34)
[2019-01-18] VITALS (24 sets, daily range): BP systolic 113–144; BP diastolic 43–69
[2019-01-18] MEDS: HYDROCODONE/ACETAMINOPHEN 5/325MG TABLET PO PRN ×2 (01:56→06:00)
[2019-01-18 06:28] LABS: BASOPHILS % 0.3 % (0.0-2.0); EOSINOPHILS % 1.2 % (0.0-5.0); LYMPHOCYTES % 11.8 % (20.0-50.0); MEAN CORPUSCULAR VOLUME 85.7 fL (81.0-99.0); MONOCYTES % 9.7 % (2.0-8.0); PLATELET 366 x1000/uL (130-400); RED CELL DISTRIBUTION WIDTH 17.4 % (11.6-14.6)
[2019-01-18 06:41] LABS: HEMOGLOBIN. 6.9 g/dL (12.0-16.0)
[2019-01-18 06:42] LABS: HEMATOCRIT. 20.5 % (36.0-48.0)
[2019-01-18 07:10] LABS: PHOSPHORUS 3.1 mg/dL (2.5-4.9)
[2019-01-18] MEDS: AMLODIPINE 5MG TABLET PO SCH ×2 (08:35→21:04)
[2019-01-18] MEDS: PANTOPRAZOLE SODIUM 40 MG/VIAL IV SCH (08:35)
[2019-01-18] MEDS: SODIUM CHLORIDE 0.9% 1,000 ML IV SCH (10:53)
[2019-01-18] MEDS: MORPHINE SULFATE 15MG TABLET SR PO SCH ×2 (10:54→21:04)
[2019-01-18 13:02] LABS: CLARITY URINE CLEAR (CLEAR); COLOR URINE YELLOW (YELLOW); KETONES URINE NEGATIVE (NEGATIVE); LEUKOCYTE ESTERASE URINE NEGATIVE (NEGATIVE); NITRITE URINE NEGATIVE (NEGATIVE); OCCULT BLOOD URINE NEGATIVE (NEGATIVE); PROTEIN URINE TRACE (NEGATIVE); SPECIFIC GRAVITY URINE 1.013 (1.005-1.030); UROBILINOGEN URINE 0.2 E.U./dL (0.2-1.0)
[2019-01-18] MEDS: HYDROMORPHONE HCL 2MG TABLET PO PRN (17:25)
[2019-01-19] VITALS (25 sets, daily range): BP systolic 113–147; BP diastolic 51–79
[2019-01-19] MEDS: HYDROMORPHONE HCL 2MG TABLET PO PRN ×2 (00:52→13:13)
[2019-01-19 03:19] LABS: BASOPHILS % 0.3 % (0.0-2.0); EOSINOPHILS % 1.6 % (0.0-5.0); HEMATOCRIT. 26.4 % (36.0-48.0); LYMPHOCYTES % 11.1 % (20.0-50.0); MEAN CORPUSCULAR HEMOGLOBIN 28.7 pg (28.0-32.0); MEAN CORPUSCULAR VOLUME 84.7 fL (81.0-99.0); MEAN PLATELET VOLUME 7.7 fl (7.4-10.4); MONOCYTES % 10.7 % (2.0-8.0); NEUTROPHILS % 76.3 % (40.0-76.0); PLATELET 403 x1000/uL (130-400); RED BLOOD CELL COUNT 3.12 mill/uL (4.2-5.4); RED CELL DISTRIBUTION WIDTH 16.2 % (11.6-14.6)
[2019-01-19] MEDS: SODIUM CHLORIDE 0.9% 1,000 ML IV SCH (06:37)
[2019-01-19] MEDS: PANTOPRAZOLE SODIUM 40 MG/VIAL IV SCH (08:43)
[2019-01-19] MEDS: MORPHINE SULFATE 15MG TABLET SR PO SCH (08:43)
[2019-01-19] MEDS: AMLODIPINE 5MG TABLET PO SCH (08:43)
[2019-01-19] MEDS ORDERED: CEFAZOLIN 1000MG PREMIX 50 ML IV SCH (11:15)
[2019-01-19] MEDS ORDERED: CEFAZOLIN 1000MG PREMIX 50 ML IV ONE (11:23)
[2019-01-19] MEDS ORDERED: SODIUM BICARBONATE 4% (2.4MEQ) 5ML VIAL IV ONE (11:34)
[2019-01-19] MEDS ORDERED: IOHEXOL-300 100 ML BOTTLE ONE (11:35)
[2019-01-19] MEDS ORDERED: LIDOCAINE HCL 1% 20ML VIAL (Pyxis) INJ ONE (11:35)
== END 2019-01-19 16:00 | disposition home or self-care (01) | DRG 356 ==
LOC: ER 03:08 → EDBEDREQTM 05:18 → EDBEDREQ 05:18 → EDBEDREQSVC 05:47 → ENRESERV 07:19 → 5EST 09:06
PROVIDERS: ADMIT Family Medicine Adult Medicine; ATTEND Family Medicine Adult Medicine
PROC: 30233N1 Transfusion of Nonautologous Red Blood Cells into Peripheral Vein, Percutaneous Approach (ICD-10-PCS; principal; 2019-01-17)
PROC: 06H03DZ Insertion of Intraluminal Device into Inferior Vena Cava, Percutaneous Approach (ICD-10-PCS; 2019-01-19)
PROC: B5191ZA Fluoroscopy of Inferior Vena Cava using Low Osmolar Contrast, Guidance (ICD-10-PCS; 2019-01-19)
DX: C16.0 Malignant neoplasm of cardia (principal); E43 Unspecified severe protein-calorie malnutrition; K92.2 Gastrointestinal hemorrhage, unspecified; I82.412 Acute embolism and thrombosis of left femoral vein; E87.2 Acidosis; I82.432 Acute embolism and thrombosis of left popliteal vein; E87.5 Hyperkalemia; M19.90 Unspecified osteoarthritis, unspecified site; E87.8 Other disorders of electrolyte and fluid balance, not elsewhere classified; F03.90 Unspecified dementia, unspecified severity, without behavioral disturbance, psychotic disturbance, mood disturbance, and anxiety; I10 Essential (primary) hypertension; D64.9 Anemia, unspecified; I25.10 Atherosclerotic heart disease of native coronary artery without angina pectoris; Z85.028 Personal history of other malignant neoplasm of stomach; Z90.710 Acquired absence of both cervix and uterus; Z82.49 Family history of ischemic heart disease and other diseases of the circulatory system; Z68.25 Body mass index [BMI] 25.0-25.9, adult
CPT/HCPCS: 36415; 37191; 71045; 80048; 81003; 82378; 83605; 83735; 84100; 86850; 86870; 86900; 86920; 93005; 93970; 96365; 96375; 99291; C1769; C1880; C9113; J0690; J1644; J2270; J3490; J7030; J7040; P9016; Q9967

== ENCOUNTER 2019-08-01 17:02 | Inpatient (IN) | payer MEDICARE, MEDICAID ==
[~2019-08-01] VITALS: Ht 160 cm; Wt 66.2 kg
[2019-08-01] MEDS ORDERED: SODIUM CHLORIDE 0.9% 1,000 ML IV ONE (18:11)
[2019-08-01 18:44] LABS: BASOPHILS % 0.4 % (0.0-2.0); EOSINOPHILS % 0.3 % (0.0-5.0); LYMPHOCYTES % 11.8 % (20.0-50.0); MEAN CORPUSCULAR HEMOGLOBIN 21.6 pg (28.0-32.0); MEAN CORPUSCULAR VOLUME 67.7 fL (81.0-99.0); MEAN PLATELET VOLUME 7.2 fl (7.4-10.4); NEUTROPHILS % 82.5 % (40.0-76.0); PLATELET 580 x1000/uL (130-400); RED BLOOD CELL COUNT 3.04 mill/uL (4.2-5.4); RED CELL DISTRIBUTION WIDTH 19.7 % (11.6-14.6)
[2019-08-01 18:45] LABS: CHLORIDE 109 mEq/L (98-107)
[2019-08-01 18:47] LABS: INR 1.1; PARTIAL THROMBOPLASTIN TIME 25.8 sec (23.4-31.0); PROTHROMBIN TIME 11.7 sec (9.6-11.0)
[2019-08-01 18:56] LABS: HEMATOCRIT. 20.6 % (36.0-48.0); HEMOGLOBIN. 6.6 g/dL (12.0-16.0)
[2019-08-01 19:38] LABS: PLATELET ESTIMATE INCREASED
[2019-08-02] VITALS (12 sets, daily range): BP systolic 145–183; BP diastolic 72–90
[2019-08-02] MEDS ORDERED: METOCLOPRAMIDE HCL 10MG/2ML VIAL IV PRN (03:00)
[2019-08-02] MEDS: MORPHINE SULFATE 2 MG/ML CPJ (NOT FOR IM USE) IV PRN ×2 (04:15→19:38)
[2019-08-02 04:23] LABS: HEMATOCRIT 21.4 % (36.0-48.0); HEMOGLOBIN 7.3 g/dL (12.0-16.0)
[2019-08-02] MEDS ORDERED: CLONIDINE 0.2MG TABLET PO PRN (07:30)
[2019-08-02] MEDS ORDERED: CLONIDINE 0.1MG TABLET PO PRN (10:30)
[2019-08-02] MEDS: FERROUS SULFATE 325MG TABLET PO SCH ×2 (12:02→18:14)
[2019-08-02] MEDS: LOSARTAN POTASSIUM 50 MG TABLET PO SCH (12:03)
[2019-08-02] MEDS: PANTOPRAZOLE SODIUM 40 MG/VIAL IV SCH (15:01)
[2019-08-02 18:04] LABS: HEMATOCRIT 24.6 % (36.0-48.0); HEMOGLOBIN 8.4 g/dL (12.0-16.0)
[2019-08-02 18:32] LABS: TOTAL IRON BINDING CAPACITY 238 ug/dL (250-450)
[2019-08-02] MEDS: ONDANSETRON HCL 4MG/2ML INJ IV PRN (19:38)
[2019-08-02] MEDS: AMLODIPINE 5MG TABLET PO SCH (21:08)
[2019-08-03] VITALS (12 sets, daily range): BP systolic 146–193; BP diastolic 69–94
[2019-08-03] MEDS: ONDANSETRON HCL 4MG/2ML INJ IV PRN ×4 (03:48→23:24)
[2019-08-03] MEDS: MORPHINE SULFATE 2 MG/ML CPJ (NOT FOR IM USE) IV PRN ×5 (03:49→23:30)
[2019-08-03] MEDS ORDERED: OMEPRAZOLE 20MG CAPSULE EXTENDED RELEASE PO SCH (06:50)
[2019-08-03 07:41] LABS: BASOPHILS % 0.5 % (0.0-2.0); EOSINOPHILS % 1.8 % (0.0-5.0); HEMATOCRIT. 24.2 % (36.0-48.0); HEMOGLOBIN. 8.3 g/dL (12.0-16.0); LYMPHOCYTES % 11.4 % (20.0-50.0); MEAN CORPUSCULAR HEMOGLOBIN 24.9 pg (28.0-32.0); MEAN PLATELET VOLUME 7.3 fl (7.4-10.4); MONOCYTES % 7.5 % (2.0-8.0); NEUTROPHILS % 78.8 % (40.0-76.0); PLATELET 381 x1000/uL (130-400); RED BLOOD CELL COUNT 3.32 mill/uL (4.2-5.4); RED CELL DISTRIBUTION WIDTH 21.7 % (11.6-14.6)
[2019-08-03 07:55] LABS: CHLORIDE 113 mEq/L (98-107)
[2019-08-03] MEDS: AMLODIPINE 5MG TABLET PO SCH ×2 (08:44→21:41)
[2019-08-03] MEDS: LOSARTAN POTASSIUM 50 MG TABLET PO SCH ×2 (08:44→21:41)
[2019-08-03] MEDS: FERROUS SULFATE 325MG TABLET PO SCH ×3 (08:44→17:51)
[2019-08-03] MEDS: DOCUSATE SODIUM 250MG CAPSULE PO SCH (08:45)
[2019-08-03 09:33] LABS: CLARITY URINE CLEAR (CLEAR); COLOR URINE YELLOW (YELLOW); KETONES URINE TRACE (NEGATIVE); LEUKOCYTE ESTERASE URINE NEGATIVE (NEGATIVE); NITRITE URINE NEGATIVE (NEGATIVE); OCCULT BLOOD URINE NEGATIVE (NEGATIVE); PH URINE 6.5 (4.5-8.0); PROTEIN URINE 1+ (NEGATIVE); SPECIFIC GRAVITY URINE 1.015 (1.005-1.030)
[2019-08-03] MEDS: PANTOPRAZOLE SODIUM 40 MG/VIAL IV SCH (12:56)
[2019-08-03] MEDS ORDERED: POTASSIUM CHLORIDE 20MEQ TABLET SR PO SCH (13:15)
[2019-08-03] MEDS ORDERED: HYDRALAZINE HCL 100MG TABLET PO SCH ×2 (13:15→21:00)
[2019-08-04] VITALS (12 sets, daily range): BP systolic 151–184; BP diastolic 70–91
[2019-08-04] MEDS: MORPHINE SULFATE 2 MG/ML CPJ (NOT FOR IM USE) IV PRN ×4 (03:46→20:01)
[2019-08-04] MEDS: ONDANSETRON HCL 4MG/2ML INJ IV PRN ×3 (03:46→15:52)
[2019-08-04] MEDS: FERROUS SULFATE 325MG TABLET PO SCH (08:04)
[2019-08-04] MEDS ORDERED: HYDRALAZINE HCL 100MG TABLET PO SCH (08:30)
[2019-08-04] MEDS: PANTOPRAZOLE SODIUM 40 MG/VIAL IV SCH (08:45)
[2019-08-04] MEDS: DOCUSATE SODIUM 250MG CAPSULE PO SCH (08:46)
[2019-08-04] MEDS: LOSARTAN POTASSIUM 50 MG TABLET PO SCH (08:46)
[2019-08-04] MEDS: AMLODIPINE 5MG TABLET PO SCH (08:46)
[2019-08-04] MEDS ORDERED: CLONIDINE 0.1MG TABLET PO SCH (09:00)
[2019-08-04 10:21] LABS: BASOPHILS % 0.5 % (0.0-2.0); EOSINOPHILS % 1.2 % (0.0-5.0); HEMATOCRIT. 27.5 % (36.0-48.0); HEMOGLOBIN. 9.3 g/dL (12.0-16.0); LYMPHOCYTES % 9.6 % (20.0-50.0); MEAN CORPUSCULAR HEMOGLOBIN 24.7 pg (28.0-32.0); MEAN CORPUSCULAR VOLUME 73.2 fL (81.0-99.0); MEAN PLATELET VOLUME 7.2 fl (7.4-10.4); MONOCYTES % 5.8 % (2.0-8.0); NEUTROPHILS % 82.9 % (40.0-76.0); PLATELET 391 x1000/uL (130-400); RED BLOOD CELL COUNT 3.76 mill/uL (4.2-5.4)
[2019-08-04] MEDS ORDERED: ENALAPRIL 1.25MG/ML VIAL 1ML IV SCH (12:00)
[2019-08-04] MEDS: HYDRALAZINE 20MG/ML VIAL IV SCH ×2 (12:34→17:43)
[2019-08-04] MEDS ORDERED: POTASSIUM CHLORIDE INJ 40 MEQ in DEXT 5% WATER 250 ML IV SCH (14:00)
[2019-08-04] MEDS ORDERED: LABETALOL 5MG/ML SYR 20 MG/4 ML SYRINGE IV PRN ×2 (17:15→18:30)
[2019-08-04] MEDS: ENALAPRIL 2.5MG/2ML VIAL 2ML IV SCH (17:43)
[2019-08-05] VITALS (12 sets, daily range): BP systolic 126–182; BP diastolic 53–89
[2019-08-05] MEDS: HYDRALAZINE 20MG/ML VIAL IV SCH ×3 (00:05→11:55)
[2019-08-05] MEDS: ENALAPRIL 2.5MG/2ML VIAL 2ML IV SCH ×3 (00:05→11:56)
[2019-08-05] MEDS: MORPHINE SULFATE 2 MG/ML CPJ (NOT FOR IM USE) IV PRN ×7 (00:05→23:44)
[2019-08-05 06:39] LABS: BASOPHILS % 0.2 % (0.0-2.0); EOSINOPHILS % 0.8 % (0.0-5.0); HEMATOCRIT. 28.7 % (36.0-48.0); HEMOGLOBIN. 9.5 g/dL (12.0-16.0); LYMPHOCYTES % 9.8 % (20.0-50.0); MEAN CORPUSCULAR HEMOGLOBIN 24.8 pg (28.0-32.0); MEAN CORPUSCULAR VOLUME 74.9 fL (81.0-99.0); MEAN PLATELET VOLUME 7.3 fl (7.4-10.4); MONOCYTES % 7.9 % (2.0-8.0); NEUTROPHILS % 81.3 % (40.0-76.0); PLATELET 403 x1000/uL (130-400); RED BLOOD CELL COUNT 3.83 mill/uL (4.2-5.4); RED CELL DISTRIBUTION WIDTH 22.7 % (11.6-14.6)
[2019-08-05] MEDS ORDERED: LIDOCAINE HCL 1% 20ML VIAL (Pyxis) INJ ONE (06:50)
[2019-08-05] MEDS ORDERED: BACITRACIN 50,000 UNITS/VIAL ONE (06:51)
[2019-08-05] MEDS ORDERED: BUPIVACAINE HCL/PF 0.5% (5MG/ML) 10ML ONE ×2 (06:51→06:59)
[2019-08-05] MEDS ORDERED: MIDAZOLAM HCL 2 MG/2 ML VIAL ONE (07:27)
[2019-08-05] MEDS ORDERED: FENTANYL CITRATE/PF 50MCG/ML 2ML VIAL ONE (07:27)
[2019-08-05] MEDS ORDERED: SODIUM CHLORIDE 0.9% 10ML VIAL ONE ×4 (07:32→09:13)
[2019-08-05] MEDS ORDERED: PHENYLEPHRINE HCL 10 MG/ML 1ML (IV VIAL) IV ONE (07:33)
[2019-08-05] MEDS ORDERED: ROCURONIUM BROMIDE 10MG/ML VIAL 5ML IV ONE (07:58)
[2019-08-05] MEDS ORDERED: PROPOFOL 200MG/20ML VIAL IV ONE (07:59)
[2019-08-05] MEDS ORDERED: LIDOCAINE HCL/PF 1% 10 MG/ML 5ML VIAL ONE (07:59)
[2019-08-05] MEDS ORDERED: ESMOLOL HCL 10MG/ML 10ML VIAL IV ONE (08:02)
[2019-08-05] MEDS ORDERED: CEFAZOLIN SODIUM 1000MG/VIAL ONE (08:14)
[2019-08-05] MEDS ORDERED: EPHEDRINE SULFATE 50MG/ML VIAL ONE (08:19)
[2019-08-05] MEDS ORDERED: DEXAMETHASONE 4MG/ML 1ML VIAL ONE (08:46)
[2019-08-05] MEDS ORDERED: ONDANSETRON HCL 4MG/2ML INJ ONE (08:47)
[2019-08-05] MEDS: PANTOPRAZOLE SODIUM 40 MG/VIAL IV SCH (09:00)
[2019-08-05] MEDS ORDERED: HYDRALAZINE 20MG/ML VIAL ONE (09:13)
[2019-08-05] MEDS ORDERED: HYDROMORPHONE HCL/PF 2MG/ML CPJ ONE (09:32)
[2019-08-05] MEDS: HYDROMORPHONE HCL/PF 2MG/ML CPJ IV PRN ×4 (09:57→10:41)
[2019-08-05] MEDS: KETOROLAC 15MG/ML VIAL IV SCH ×3 (10:06→20:49)
[2019-08-05] MEDS ORDERED: KETOROLAC 30MG/ML VIAL ONE (10:07)
[2019-08-05] MEDS ORDERED: HYDRALAZINE 20MG/ML VIAL IV SCH (10:30)
[2019-08-05] MEDS ORDERED: LABETALOL 5MG/ML SYR 20 MG/4 ML SYRINGE IV SCH (14:00)
[2019-08-05 15:37] LABS: CHLORIDE 113 mEq/L (98-107)
[2019-08-05] MEDS ORDERED: HYDRALAZINE HCL 100MG TABLET PO NR (16:05)
[2019-08-05] MEDS: LOSARTAN POTASSIUM 100 MG TABLET PO SCH (17:07)
[2019-08-05] MEDS: HYDRALAZINE HCL 100MG TABLET PO SCH (21:36)
[2019-08-06] VITALS (13 sets, daily range): BP systolic 109–155; BP diastolic 53–86
[2019-08-06] MEDS ORDERED: MORPHINE SULFATE 4 MG/ML CPJ (NOT FOR IM USE) IV PRN (00:15)
[2019-08-06] MEDS: KETOROLAC 15MG/ML VIAL IV SCH ×4 (03:06→22:15)
[2019-08-06] MEDS: HYDRALAZINE HCL 100MG TABLET PO SCH ×3 (05:33→21:58)
[2019-08-06] MEDS: PANTOPRAZOLE SODIUM 40 MG/VIAL IV SCH (08:29)
[2019-08-06] MEDS: HYDROCODONE/APAP 7.5/325MG 1 TAB TABLET GT SCH ×3 (08:31→21:53)
[2019-08-06] MEDS: LOSARTAN POTASSIUM 100 MG TABLET PO SCH (08:31)
[2019-08-06] MEDS: MORPHINE SULFATE 4 MG/ML CPJ (NOT FOR IM USE) IV PRN ×3 (10:31→17:10)
[2019-08-06] MEDS: IRON SUCROSE COMPLEX 100 MG/5 ML ML IV SCH (10:54)
[2019-08-06] MEDS ORDERED: LACTULOSE 20G/30ML UDC PO SCH (12:00)
[2019-08-06] MEDS: METOCLOPRAMIDE HCL 10MG/2ML VIAL IV SCH ×3 (12:13→23:27)
[2019-08-07] VITALS (15 sets, daily range): BP systolic 94–147; BP diastolic 58–88
[2019-08-07] MEDS: HYDROCODONE/APAP 7.5/325MG 1 TAB TABLET GT SCH ×4 (03:41→20:07)
[2019-08-07] MEDS: KETOROLAC 15MG/ML VIAL IV SCH ×2 (03:51→09:45)
[2019-08-07] MEDS: HYDRALAZINE HCL 100MG TABLET PO SCH (06:04)
[2019-08-07] MEDS: METOCLOPRAMIDE HCL 10MG/2ML VIAL IV SCH ×3 (06:04→17:21)
[2019-08-07] MEDS: LOSARTAN POTASSIUM 100 MG TABLET PO SCH (09:00)
[2019-08-07] MEDS: IRON SUCROSE COMPLEX 100 MG/5 ML ML IV SCH (09:25)
[2019-08-07] MEDS: PANTOPRAZOLE SODIUM 40 MG/VIAL IV SCH (09:25)
[2019-08-07] MEDS ORDERED: DOCUSATE SODIUM 250MG CAPSULE PO SCH (10:45)
[2019-08-07] MEDS ORDERED: DILTIAZEM HCL 5MG/ML 5ML VIAL IV NR (11:15)
[2019-08-07] MEDS: DOCUSATE SODIUM SUGAR FREE 100MG/10ML UDC GT SCH ×2 (11:22→17:20)
[2019-08-07] MEDS ORDERED: DIGOXIN 500MCG/2ML AMP IV NR ×2 (11:30→13:30)
[2019-08-07] MEDS ORDERED: DILTIAZEM HCL 5MG/ML 5ML VIAL IV PRN (13:15)
[2019-08-07] MEDS ORDERED: BISACODYL 10MG SUPP PR PRN (15:00)
[2019-08-07 16:46] LABS: BASOPHILS % 0.3 % (0.0-2.0); EOSINOPHILS % 0.5 % (0.0-5.0); HEMATOCRIT. 27.5 % (36.0-48.0); HEMOGLOBIN. 9.2 g/dL (12.0-16.0); LYMPHOCYTES % 8.6 % (20.0-50.0); MEAN CORPUSCULAR HEMOGLOBIN 24.6 pg (28.0-32.0); MEAN CORPUSCULAR VOLUME 73.9 fL (81.0-99.0); MEAN PLATELET VOLUME 7.7 fl (7.4-10.4); MONOCYTES % 6.3 % (2.0-8.0); NEUTROPHILS % 84.3 % (40.0-76.0); PLATELET 527 x1000/uL (130-400); RED BLOOD CELL COUNT 3.73 mill/uL (4.2-5.4); RED CELL DISTRIBUTION WIDTH 22.7 % (11.6-14.6)
[2019-08-07] MEDS: DILTIAZEM HCL 60MG TABLET PO SCH (17:21)
[2019-08-08] VITALS (11 sets, daily range): BP systolic 104–156; BP diastolic 56–85
[2019-08-08] MEDS: METOCLOPRAMIDE HCL 10MG/2ML VIAL IV SCH ×4 (00:06→16:25)
[2019-08-08] MEDS: DILTIAZEM HCL 60MG TABLET PO SCH ×2 (00:06→05:23)
[2019-08-08] MEDS: MORPHINE SULFATE 4 MG/ML CPJ (NOT FOR IM USE) IV PRN ×5 (00:07→18:21)
[2019-08-08] MEDS: HYDROCODONE/APAP 7.5/325MG 1 TAB TABLET GT SCH ×2 (03:25→09:06)
[2019-08-08] MEDS: DOCUSATE SODIUM SUGAR FREE 100MG/10ML UDC GT SCH ×2 (09:06→16:25)
[2019-08-08] MEDS: PANTOPRAZOLE SODIUM 40 MG/VIAL IV SCH (09:06)
[2019-08-08] MEDS: IRON SUCROSE COMPLEX 100 MG/5 ML ML IV SCH (09:07)
[2019-08-08] MEDS: ONDANSETRON HCL 4MG/2ML INJ IV PRN (09:22)
[2019-08-08] MEDS: SODIUM CHLORIDE 0.45% 1,000 ML IV SCH (12:42)
[2019-08-08] MEDS: DILTIAZEM HCL 90MG TABLET PO SCH ×2 (12:46→23:01)
[2019-08-08] MEDS ORDERED: PIPERACILLIN/TAZOBACTAM 3.375 G in DEXT 5% WATER 100 ML IV SCH (13:30)
[2019-08-08] MEDS: HYDROCODONE/APAP 7.5/325MG 1 TAB TABLET GT PRN ×2 (14:04→21:17)
[2019-08-08] MEDS: LACTULOSE 20G/30ML UDC GT SCH (14:06)
[2019-08-08] MEDS: PIPERACILLIN/TAZOBACTAM 2.25 G in DEXTROSE 5% WATER 50 ML IV SCH ×2 (16:25→22:06)
[2019-08-08] MEDS: POLYETHYLENE GLYCOL 3350 (17GM) 1 DOSE PACK GT SCH (23:00)
[2019-08-09] VITALS: BP 124/72
[2019-08-09] MEDS: METOCLOPRAMIDE HCL 10MG/2ML VIAL IV SCH ×4 (00:17→17:54)
[2019-08-09] MEDS: SODIUM CHLORIDE 0.45% 1,000 ML IV SCH ×2 (00:18→12:37)
[2019-08-09 00:28] LABS: CLARITY URINE CLOUDY (CLEAR); COLOR URINE DK YELLOW (YELLOW); KETONES URINE NEGATIVE (NEGATIVE); LEUKOCYTE ESTERASE URINE 1+ (NEGATIVE); NITRITE URINE NEGATIVE (NEGATIVE); OCCULT BLOOD URINE 2+ (NEGATIVE); PH URINE 5.5 (4.5-8.0); PROTEIN URINE 1+ (NEGATIVE); SPECIFIC GRAVITY URINE 1.021 (1.005-1.030)
[2019-08-09] MEDS: HYDROCODONE/APAP 7.5/325MG 1 TAB TABLET GT PRN ×2 (01:20→05:43)
[2019-08-09] MEDS: PIPERACILLIN/TAZOBACTAM 2.25 G in DEXTROSE 5% WATER 50 ML IV SCH ×4 (03:25→21:16)
[2019-08-09 04:00] VITALS: BP 142/79
[2019-08-09] MEDS: DILTIAZEM HCL 90MG TABLET PO SCH ×3 (05:42→17:54)
[2019-08-09 06:42] LABS: HEMATOCRIT. 28.5 % (36.0-48.0); HEMOGLOBIN. 9.3 g/dL (12.0-16.0); MEAN CORPUSCULAR HEMOGLOBIN 24.4 pg (28.0-32.0); MEAN CORPUSCULAR VOLUME 74.6 fL (81.0-99.0); MEAN PLATELET VOLUME 7.8 fl (7.4-10.4); PLATELET 632 x1000/uL (130-400); RED BLOOD CELL COUNT 3.82 mill/uL (4.2-5.4); RED CELL DISTRIBUTION WIDTH 22.8 % (11.6-14.6)
[2019-08-09 08:00] VITALS: BP 161/88
[2019-08-09] MEDS: BISACODYL 10MG SUPP PR SCH (09:00)
[2019-08-09] MEDS: LACTULOSE 20G/30ML UDC GT SCH (09:00)
[2019-08-09] MEDS: DOCUSATE SODIUM SUGAR FREE 100MG/10ML UDC GT SCH ×2 (09:00→16:47)
[2019-08-09] MEDS: PANTOPRAZOLE SODIUM 40 MG/VIAL IV SCH (09:07)
[2019-08-09] MEDS: MORPHINE SULFATE 4 MG/ML CPJ (NOT FOR IM USE) IV PRN ×4 (09:13→21:17)
[2019-08-09 10:45] LABS: PLATELET ESTIMATE MARKEDLY INCREASED
[2019-08-09] MEDS: DEXT 5%/0.45% NACL KCL 20MEQ/L 1,000 ML IV SCH ×2 (11:22→22:30)
[2019-08-09 12:00] VITALS: BP 166/80
[2019-08-09] MEDS ORDERED: HYDRALAZINE 10 MG in SODIUM CHLORIDE 0.9% 49.5 ML IV PRN (14:15)
[2019-08-09 16:00] VITALS: BP 157/77
[2019-08-09 20:00] VITALS: BP 158/81
[2019-08-09] MEDS: POLYETHYLENE GLYCOL 3350 (17GM) 1 DOSE PACK GT SCH (20:28)
[2019-08-10] VITALS: BP 154/77
[2019-08-10] MEDS: METOCLOPRAMIDE HCL 10MG/2ML VIAL IV SCH ×3 (01:55→12:03)
[2019-08-10 04:00] VITALS: BP 119/60
[2019-08-10] MEDS: PIPERACILLIN/TAZOBACTAM 2.25 G in DEXTROSE 5% WATER 50 ML IV SCH ×2 (04:11→10:51)
[2019-08-10] MEDS: MORPHINE SULFATE 4 MG/ML CPJ (NOT FOR IM USE) IV PRN ×3 (04:48→14:49)
[2019-08-10] MEDS: DILTIAZEM HCL 90MG TABLET PO SCH ×3 (06:00→12:00)
[2019-08-10 06:24] LABS: BASOPHILS % 0.2 % (0.0-2.0); EOSINOPHILS % 0.8 % (0.0-5.0); HEMATOCRIT. 28.1 % (36.0-48.0); HEMOGLOBIN. 9.3 g/dL (12.0-16.0); LYMPHOCYTES % 11.1 % (20.0-50.0); MEAN CORPUSCULAR VOLUME 75.6 fL (81.0-99.0); MEAN PLATELET VOLUME 7.5 fl (7.4-10.4); NEUTROPHILS % 78.9 % (40.0-76.0); PLATELET 631 x1000/uL (130-400); RED BLOOD CELL COUNT 3.71 mill/uL (4.2-5.4); RED CELL DISTRIBUTION WIDTH 22.6 % (11.6-14.6)
[2019-08-10] MEDS: DEXT 5%/0.45% NACL KCL 20MEQ/L 1,000 ML IV SCH (07:00)
[2019-08-10 08:00] VITALS: BP 135/75
[2019-08-10] MEDS ORDERED: DIATR MEGLU/DIATRIZOATE SOLN 30ML ONE ×2 (08:21→09:05)
[2019-08-10] MEDS: LACTULOSE 20G/30ML UDC GT SCH (09:00)
[2019-08-10] MEDS: BISACODYL 10MG SUPP PR SCH (09:00)
[2019-08-10] MEDS: DOCUSATE SODIUM SUGAR FREE 100MG/10ML UDC GT SCH (09:00)
[2019-08-10] MEDS: PANTOPRAZOLE SODIUM 40 MG/VIAL IV SCH (09:00)
[2019-08-10 12:00] VITALS: BP 123/70
[2019-08-10 14:49] VITALS: BP 140/73
== END 2019-08-10 15:45 | disposition hospice, home (50) | DRG 374 ==
LOC: ER 17:02 → 3WST 23:54 → ENRESERV 08-02 09:01 → 6EST 08-08 22:41
PROVIDERS: ADMIT Internal Medicine; ATTEND Internal Medicine
PROC: 30233N1 Transfusion of Nonautologous Red Blood Cells into Peripheral Vein, Percutaneous Approach (ICD-10-PCS; 2019-08-02)
PROC: 0DH Gastrointestinal System, Insertion (ICD-10-PCS; principal; 2019-08-05)
DX: C15.5 Malignant neoplasm of lower third of esophagus (principal); E43 Unspecified severe protein-calorie malnutrition; K92.0 Hematemesis; G62.81 Critical illness polyneuropathy; I47.1 Supraventricular tachycardia; I48.20 Chronic atrial fibrillation, unspecified; K22.2 Esophageal obstruction; I10 Essential (primary) hypertension; M19.90 Unspecified osteoarthritis, unspecified site; E87.8 Other disorders of electrolyte and fluid balance, not elsewhere classified; D50.0 Iron deficiency anemia secondary to blood loss (chronic); D63.8 Anemia in other chronic diseases classified elsewhere; E87.6 Hypokalemia; R26.9 Unspecified abnormalities of gait and mobility; R53.81 Other malaise; J44.9 Chronic obstructive pulmonary disease, unspecified; Z66 Do not resuscitate; Z20.828 Contact with and (suspected) exposure to other viral communicable diseases; Z85.028 Personal history of other malignant neoplasm of stomach; Z92.3 Personal history of irradiation; Z79.891 Long term (current) use of opiate analgesic; Z79.899 Other long term (current) drug therapy; Z68.25 Body mass index [BMI] 25.0-25.9, adult
CPT/HCPCS: 36415; 71045; 74249; 80048; 80053; 81003; 82728; 82962; 83540; 83550; 83735; 84145; 85014; 85018; 85025; 86850; 86870; 86900; 86920; 92610; 93005; 93306; 93970; 97162; 97165; 99285; C9113; J0360; J0690; J1100; J1160; J1170; J1885; J2250; J2270; J2370; J2405; J2543; J2704; J2765; J3010; J3480; J3490; J7030; J7060; P9016; Q9963; U0003-CS